=== PATIENT | male | born 1960 | race Caucasian/White ===

== ENCOUNTER → 2018-03-31 | Outpatient (CLI) | payer BC | LOC: M RAD 13:35 | DX: M25.512 Pain in left shoulder (principal); R93.7 Abnormal findings on diagnostic imaging of other parts of musculoskeletal system | CPT/HCPCS: 73221 ==

== ENCOUNTER 2019-10-14 06:02 | Day surgery (SDC) | payer OTHER ==
[~2019-10-14] VITALS: Ht 162.6 cm; Wt 81.2 kg
[~2019-10-14 06:02] MED LIST: AMLO10TA5 PO; ASPI81TA85 PO; ATOR1TAB21 PO; GLUC1TAB58 PO; LOSA50TA88 PO; LR 1,000 ML IV ONE; MULTCAP PO; NAPR-885 PO; OMEP1CAP73 PO; fentaNYL 100 MCG/2 ML INJECTION (J3010) IV SCH
[2019-10-14] MEDS ORDERED: dexameTHASONE 10MG/1ML VIAL PRES.FREE (J1100 PER 1MG) ONE (06:03)
[2019-10-14] MEDS ORDERED: EPINEPHrine INJ 1 MG/ML 1ML AMP ONE (06:03)
[2019-10-14] MEDS ORDERED: ROPIvacaine 0.5% 30 ML INJECTION (J2795 PER 1MG) ONE (06:03)
[2019-10-14] MEDS ORDERED: MIDAZOLAM INJ 2 MG/2 ML VIAL (J2250) As Ordered ONE ×2 (06:47→07:27)
[2019-10-14] MEDS ORDERED: fentaNYL 250 MCG/5 ML INJECTION (J3010) As Ordered ONE (06:48)
[2019-10-14] MEDS ORDERED: SUGAMMADEX SODIUM 500 MG/5 ML VIAL (BRIDION) As Ordered ONE (06:49)
[2019-10-14] MEDS ORDERED: ACETAMINOPHEN 1000MG 100ML IV BTL (OFIRMEV) (J0131 PER 10MG) As Ordered ONE (06:49)
[2019-10-14] MEDS ORDERED: ACET-683 PO (06:49)
[2019-10-14] MEDS ORDERED: PHENYLephrine HCL 500 MCG/5 ML (100MCG/ML) SYRINGE (J2370) As Ordered ONE ×2 (06:49→09:45)
[2019-10-14] MEDS ORDERED: CLAR10TA7 (06:49)
[2019-10-14] MEDS ORDERED: ONDANSETRON 4MG/2ML VIAL (J2405) As Ordered ONE (06:49)
[2019-10-14] MEDS ORDERED: ROCURONIUM BROMIDE 50 MG/5 ML VIAL As Ordered ONE ×2 (06:49→09:15)
[2019-10-14] MEDS ORDERED: dexameTHASONE 4 MG/ML 1ML VIAL (J1100 PER 1MG) As Ordered ONE (06:49)
[2019-10-14] MEDS ORDERED: LIDOCAINE 2% INJ 100 MG/5 ML SDV (FOR ANES.) As Ordered ONE (06:49)
[2019-10-14] MEDS ORDERED: ePHEDrine SULFATE 25 MG/5 ML(5MG/ML) SYRINGE As Ordered ONE (06:49)
[2019-10-14] MEDS ORDERED: propofoL 200 MG/20 ML VIAL As Ordered ONE (06:49)
[2019-10-14] MEDS ORDERED: VANCOMYCIN 1000 MG/20 ML VIAL (J3370) As Ordered ONE (07:18)
[2019-10-14] MEDS ORDERED: fentaNYL 100 MCG/2 ML INJECTION (J3010) As Ordered ONE (07:27)
[2019-10-14] MEDS ORDERED: VANCOMYCIN HCL 1,000 MG, VIAL MATE ADAPTER 1 EACH in D5W 250 ML IV ONE (07:30)
[2019-10-14] MEDS: MIDAZOLAM INJ 2 MG/2 ML VIAL (J2250) IV SCH ×2 (07:40→07:44)
[2019-10-14] MEDS ORDERED: LIDOCAINE 1% SDV INJ 30 ML VIAL As Ordered ONE (08:43)
[2019-10-14] MEDS ORDERED: EPINEPHrine 1MG/ML INJ 30ML MD-VIAL As Ordered ONE (08:43)
--- NOTE | 2019-10-14 11:14 | RO ---
DATE OF PROCEDURE: 10/14/2019 PREOPERATIVE DIAGNOSES: 1. Right shoulder massive rotator cuff tear. 2. Right shoulder superior labral tear versus biceps tendonitis. 3. Right shoulder impingement. 4 Right shoulder AC joint arthritis. POSTOPERATIVE DIAGNOSES: 1. Right shoulder massive rotator cuff tear. 2. Right shoulder long head biceps tendinopathy. 3. Right shoulder impingement. 4. 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 PROCEDURES: 1. Right shoulder arthroscopic rotator cuff repair including subscapularis. 2. Right shoulder open subpectoral biceps tenodesis. 3. Right shoulder extensive debridement including subacromial decompression, chondroplasty, labral debridement and synovectomy. SURGEON: Dr. Андрей Curry [employer] SUPERVISOR: LANDEN Beltran ANESTHESIA: General with preoperative nerve block. IV FLUIDS: Lactated Ringer's. ESTIMATED BLOOD LOSS: 10 mL. IMPLANTS: Arthrex proximal biceps button times one, Arthrex 4.75 mm Peak SwiveLock anchor times five. CLOSURE: Nylon and Monocryl. DESCRIPTION OF PROCEDURE: Patient identified in preoperative holding area. The right shoulder was marked. He had an interscalene nerve block by anesthesia. He was brought to the operating room, placed supine on a well-padded operating room (OR) table. General anesthesia was induced. Exam under anesthesia revealed 170 degrees of forward flexion 80 of external rotation. No increased anterior-posterior translation. He was placed into the left side down lateral decubitus position with an axillary roll and all bony prominences were well padded. Bilateral Venodyne boots lower extremities for deep venous thrombosis (DVT) prophylaxis. He received appropriate IV antibiotics within 1 hour of incision. Right arm was placed into the Arthrex star sleeve lateral decubitus traction man with 10 pounds of traction. The right shoulder was then prepped and draped in normal sterile fashion with Chloraprep. Prior to incision time-out performed per hospital protocol. Monty Stock was present through the entire procedure and participated in all essential portions of the procedure. This included patient positioning and draping, holding arthroscope, holding retractors during the biceps tenodesis and assisting the whip stitching the tendon. He also assisted using the mallet and awl to place anchors and retrieving sutures and did the wound closure, applied the dressing and sling. Right shoulder was insufflated with lactated Ringer's. A standard posterior viewing portal made with 11-blade. 30 degrees arthroscope was introduced into the joint. Diagnostic arthroscopy revealed grade 1 chondromalacia of the glenoid, grade 1 to 2 in the humeral head. There was some degenerative tearing of the anterior superior labrum. There was a large tear of the entire supraspinatus extending into the infraspinatus with retraction. Long head of biceps was thickened and appeared to have some tearing. The upper border of the subscapularis was torn. In order to perform an arthroscopic subscapularis repair and given the patient's preoperative biceps pain, I performed a tenotomy of the long head of the biceps with the meniscal biter just off the labrum. The tendon withdrew from the joint. The shaver was used to debride the stump. I also performed a chondroplasty to the humeral head and glenoid and debrided the anterior and superior labrum. I then proceeded with an arthroscopic subscapularis repair. An accessory superolateral portal was developed and on performing the posterior lever push maneuver the subscapularis lifted off of the lesser tuberosity. The shaver was used to clear soft tissue off the lesser tuberosity and the scorpion was used to pass FiberTape through the upper border of the subscapularis. Those sutures were loaded through 4.75 mm Peak SwiveLock anchor. An awl was used to create a socket and then the anchor docked, sutures tensioned and then inserted by hand with excellent fixation. This nicely restored the subscapularis. I then proceeded to an open biceps tenodesis. A 3 cm incision made with a 15 blade just lateral to the axilla and subcutaneous dissection with Metzenbaum scissors. The biceps fascia was carefully opened with electrocautery and scissors and then the right angle clamp used to dissect out the long head of the biceps. A running locking whip stitch was then placed with the Arthrex FiberLoop. Excess tendon trimmed and sent to pathology. Sutures were loaded through the Arthrex proximal biceps button per routine. A unicortical drill hole was made with a spade tip drill bit. Bony debris removed with irrigation. The button was passed through the drill hole on the orthotic and prosthetic technician. Sutures were toggled which flipped the button and reduced the tendon along the bicipital groove nicely. A curve free needle was used to pass one limb of the FiberWire back through the tendon. Knots tied by hand to lock the construct in place. This nicely restored the resting tension biceps. The incision was then extensively irrigated, closed in a layered fashion with #2-0 Vicryl, #2-0 Vicryl and Monocryl. Steri-Strips placed at the end of the case. The arthroscope was now placed in the subacromial space where the massive rotator cuff tear was further appreciated. Through a lateral working portal I performed an extensive bursectomy and synovectomy. This was a crescent shaped tear with a complete detachment of the anterior supraspinatus somewhat of an L configuration as well. The ring curette was used to clear soft tissue off the tuberosity to create a bleeding surface. The rotator cuff grasper was used to manipulate the tendon to determine appropriate configuration of the repair. I percutaneously placed the first of four SwiveLock anchors. This was a peak 4.75 mm peak b SwiveLock anchor in the anterior tuberosity just off the articular surface. Eyelet stitches were passed through the far anterior supraspinatus in a horizontal mattress fashion. The sutures were then tied by hand using a knot pusher with alternating half-hitch technique. This nicely set the leading edge tension of the supraspinatus. The tape sutures were then passed in a horizontal mattress fashion just posterior to that. A second 4.75 mm Peak SwiveLock anchor was then percutaneously placed just off the articular surface further posteriorly. Tape sutures were passed through the posterior central portion of the tear. The eyelet sutures were passed in the far posterior portion of the tear. Those eyelet stitches were then tied using alternating half-hitch technique with a knot pusher that nicely set the posterior edge of the infraspinatus. Next, we completed the double row of the anterior eyelet stitches and then one limb from each medial anchor were brought out through the anterolateral portal loaded through 4.75 mm Peak SwiveLock anchor. The awl was used to create a socket in the anterolateral tuberosity. [place] docked, sutures tensioned, anchor inserted by hand with excellent fixation. The steps were repeated for the remaining sutures to complete the modified speed bridge. There are no dog ears. There was no lift off or buckling. The tendon was nicely compressed to the tuberosity. The shoulder was gently rotated. There is no lift off or buckling. Prior to the double row repair, I did use the cautery to remove some of the CA ligament and there was a large subacromial spur so I performed a formal acromioplasty turning this into a type 1 morphology. I should also mention the patient had no pain at the AC joint in the preoperative holding area and told me to only perform the portion of the case that was necessary. Therefore, we did not do a distal clavicle excision. Portals were closed with nylon suture. Bulky sterile dressing applied. At the time of dictation, the patient is being placed into his ARC 2 sling and about to be extubated, transferred to postanesthesia care unit (PACU) following that.
[2019-10-14] MEDS ORDERED: MEPERIDINE INJ 25 MG/ML VIAL (J2175) IV PRN (11:15)
[2019-10-14] MEDS ORDERED: ONDANSETRON 4MG/2ML VIAL (J2405) IV PRN (11:15)
[2019-10-14] MEDS ORDERED: METOCLOPRAMIDE INJ 10MG/2ML VIAL (J2765) IV PRN (11:15)
[2019-10-14] MEDS ORDERED: LR 1,000 ML IV SCH ×2 (11:15)
[2019-10-14] MEDS: fentaNYL 100 MCG/2 ML INJECTION (J3010) IV PRN ×2 (11:41→11:55)
[2019-10-14] MEDS: oxyCODONE 5MG TAB PO PRN ×2 (11:42→12:16)
[2019-10-14 17:05] VITALS: BP 139/80
== END 2019-10-14 17:22 | disposition home or self-care (01) ==
LOC: M SDC 06:02
PROVIDERS: ATTEND Orthopaedic Surgery
DX: M75.121 Complete rotator cuff tear or rupture of right shoulder, not specified as traumatic (principal); M75.21 Bicipital tendinitis, right shoulder; M75.41 Impingement syndrome of right shoulder; M19.011 Primary osteoarthritis, right shoulder; I10 Essential (primary) hypertension; E78.5 Hyperlipidemia, unspecified; K21.9 Gastro-esophageal reflux disease without esophagitis; Z79.82 Long term (current) use of aspirin; Z79.899 Other long term (current) drug therapy; Z88.0 Allergy status to penicillin; Z88.8 Allergy status to other drugs, medicaments and biological substances
CPT/HCPCS: 23430; 29823; 29826; 29827; 64445; 88304; C1713; J0131; J0171; J1100; J2250; J2370; J2405; J2795; J3010; J3370

== ENCOUNTER 2024-10-18 18:34 | Emergency (ER) | payer MEDICARE, MEDICAID ==
[~2024-10-18] VITALS: Ht 160 cm; Wt 74.6 kg
[~2024-10-18 18:34] MED LIST changes: +ACET-683 PO; -AMLO10TA5 PO; +AMLO1TAB25 PO; -ASPI81TA85 PO; +ASPI81TA86 PO; +CLAR10TA7; +LOSA50TA28 PO; -LOSA50TA88 PO; -LR 1,000 ML IV ONE; -fentaNYL 100 MCG/2 ML INJECTION (J3010) IV SCH
[2024-10-18] MEDS ORDERED: ISOVUE-370 76% 100ML VIAL As Ordered ONE (19:23)
[2024-10-18 19:24] LABS: BASO # 0.1 10^3/uL (0.0-0.2); BASO % 0.5 % (0.0-1.0); EOS # 0.1 10^3/uL (0.0-0.5); EOS % 0.8 % (0.0-3.0); HEMATOCRIT 42.2 % (42.0-52.0); HEMOGLOBIN 14.3 g/dl (13.5-17.5); LYMPH # 1.8 10^3/uL (1.5-5.0); LYMPH % 13.7 % (24.0-44.0); MEAN CORPUSCULAR HEMOGLOBIN 29.6 pg (27.0-33.0); MEAN CORPUSCULAR HGB CONC 33.9 g/dl (32.0-36.5); MEAN CORPUSCULAR VOLUME 87.4 fl (80.0-96.0); MONO # 1.3 10^3/uL (0.0-0.8); NEUTROPHILS # 9.8 10^3/uL (1.5-8.5); PLATELET COUNT, AUTOMATED 339 10^3/uL (150-450); RED BLOOD COUNT 4.83 10^6/uL (4.30-6.10); WHITE BLOOD COUNT 13.2 10^3/uL (4.0-10.0)
[2024-10-18] MEDS: ONDANSETRON 4MG 2ML VIAL IV ONE (19:24)
[2024-10-18] MEDS: MORPHINE 4 MG/ML 1ML VIAL IV PRN (19:25)
[2024-10-18] MEDS: BOOSTRIX VACCINE (TETANUS/DIPHTH/ACEL. PERTUSSIS) 0.5ML SYR IM.IMMUN ONE (19:26)
[2024-10-18 19:43] LABS: INR 0.93; PARTIAL THROMBOPLASTIN TIME 21.6 SECONDS (24.8-34.2); PROTHROMBIN TIME 12.7 SECONDS (12.5-14.5)
[2024-10-18 19:50] LABS: LIPASE 40 U/L (12-53)
[2024-10-18 19:51] LABS: ETHYL ALCOHOL (ETHANOL) 0.005 % (0.000-0.010)
[2024-10-18 19:52] LABS: ALKALINE PHOSPHATASE 89 U/L (40-129); ALT/SGPT 27 U/L (7.0-40); AMYLASE 92 U/L (30-118); AST/SGOT 21 U/L (<34); BILIRUBIN,DIRECT < 0.1 MG/DL (<0.4); BILIRUBIN,TOTAL 0.3 MG/DL (0.3-1.2); TOTAL PROTEIN 6.7 G/DL (5.7-8.2)
[2024-10-18] MEDS: NS (Normal Saline) 0.9% 1,000 ML IV SCH (21:55)
[2024-10-18] MEDS: diazePAM 10MG/2ML SYRINGE IV ONE (22:17)
[2024-10-18] MEDS: KETOROLAC 30 MG/ML 1ML VIAL IV ONE (22:18)
[2024-10-18] MEDS: propofoL 200 MG/20 ML VIAL IV.PROC PRN (22:20)
[2024-10-18] MEDS ORDERED: PERC5TAB12 PO (23:47)
[2024-10-18] MEDS: OXYCODONE/APAP 5MG/325MG(HOME DOSE PACK) PO ONE (23:50)
[2024-10-18] MEDS: NS (Normal Saline) 0.9% 1,000 ML IV ONE (23:55)
[2024-10-19 00:55] VITALS: BP 101/57; TEMP 98; O2SAT 99
[2024-10-19] MEDS ORDERED: FLOM0.4C39 PO (00:56)
[2024-10-19] MEDS: TAMSULOSIN 0.4 MG CAP PO ONE (01:00)
[2024-10-19 01:12] VITALS: O2SAT 99
[2024-10-19] MEDS ORDERED: PERC5TAB12 PO (12:23)
== END 2024-10-19 01:20 | disposition home or self-care (01) ==
LOC: M ED 18:34 → EDBD 18:34 → M ED 10-19 01:20
DX: S43.005A Unspecified dislocation of left shoulder joint, initial encounter (principal); S80.01XA Contusion of right knee, initial encounter; S30.1XXA Contusion of abdominal wall, initial encounter; V86.95XA Unspecified occupant of 3- or 4- wheeled all-terrain vehicle (ATV) injured in nontraffic accident, initial encounter; Y92.009 Unspecified place in unspecified non-institutional (private) residence as the place of occurrence of the external cause; Y93.9 Activity, unspecified; Y99.9 Unspecified external cause status; I10 Essential (primary) hypertension; K21.9 Gastro-esophageal reflux disease without esophagitis; M51.369 Other intervertebral disc degeneration, lumbar region without mention of lumbar back pain or lower extremity pain; K80.20 Calculus of gallbladder without cholecystitis without obstruction; N40.0 Benign prostatic hyperplasia without lower urinary tract symptoms; Z79.82 Long term (current) use of aspirin; Z79.899 Other long term (current) drug therapy; Z88.0 Allergy status to penicillin; Z88.8 Allergy status to other drugs, medicaments and biological substances
CPT/HCPCS: 23655; 51702; 70450; 71260; 72125; 72131; 73020; 73030; 73564; 74177; 80047; 80076; 82077; 82150; 83605; 83690; 85025; 85610; 85730; 86850; 86900; 86901; 90471; 90715; 93005; 93041; 94760; 96361; 96374; 96375; 96376; 99285; J1885; J2405; J3360; Q9967